=== PATIENT | female | born 1965 | race Caucasian/White ===

== ENCOUNTER → 2022-12-10 | Outpatient (CLI) | payer MEDICAID, SELFPAY ==
[2022-12-10 10:49] LABS: Absolute Lymphocyte Count 1.89 X10^3/uL (0.83-4.51); Absolute Neutrophil Count 2.9 X10^3/uL (2.0-7.7); Basophil# 0.07 X10^3/uL; Basophil% 1.3 % (0-1); Eosinophil# 0.23 X10^3/uL; Eosinophils% 4.3 % (0-5); Hemoglobin 14.9 g/dL (12.0-15.0); Lymphocyte # 1.89 X10^3/ul (0.83-4.51); Mean Corp Hgb Conc 33.9 g/dL (32-36); Mean Corpuscular Volume 94.6 fL (81-99); Monocyte# 0.35 X10^3/uL; Monocyte% 6.5 % (0-10); NRBC Flagged by Analyzer 0 % (0-5); Neutrophil # 2.85 X10^3/uL (2.7-7.7); Neutrophil % 52.7 % (47-70); Platelet Count 325 K/mm3 (150-450); RBC Distribution Width CV 13.6 % (11.6-14.6); RBC Distribution Width SD 47.6 fl (35.1-43.9); Red Blood Count 4.65 M/mm3 (4.2-5.4); White Blood Count 5.4 K/mm3 (4.4-11.0)
[2022-12-10 11:05] LABS: Vitamin B12 441 pg/mL (211-911); Vitamin D,25 Hydroxy 48.6 ng/mL
[2022-12-10 11:44] LABS: Progesterone Level < 0.21 ng/mL (See Comment)
[2022-12-10 11:50] LABS: ALB/GLOB Ratio 1.5 RATIO (0.9-2.4); AST(SGOT) 20 U/L (15-37); Alanine Aminotransfer ALT/SGPT 30 U/L (13-56); Albumin, Serum 4.3 g/dL (3.2-5.0); Alkaline Phosphatase 61 U/L (45-117); Anion Gap 8 (5-15); BUN 15 mg/dL (7-18); BUN/Creat Ratio 17.7 RATIO (10-20); Calcium,Total 10.4 mg/dL (8.5-10.1); Chloride 105 mmol/L (98-107); Creatinine, Serum 0.85 mg/dL (0.55-1.02); EST Glomerular Filtration Rate 74 mL/min (>60); Est Glom Filt Rate - Afr Amer 89 mL/min (>60); Estradiol 19.7 pg/mL; Ferritin 77 ng/mL (8-252); Globulin 2.8 g/dL (2.2-4.2); Glucose 89 mg/dL (74-106); Iron 78 ug/dL (50-170); Potassium 3.3 mmol/L (3.5-5.1); Protein, Total 7.1 g/dL (6.4-8.2); Sodium Level 140 mmol/L (136-145)
[2022-12-11 14:10] LABS: DHEA Sulfate 92.5 ug/dL (29.4-220.5)
[2022-12-11 18:51] LABS: Lyme Scn Total Ab w/Rflx Negative (Negative)
[2022-12-11 18:54] LABS: CMV Antibody IgG < 0.60 U/mL (0.00-0.59); EBV Acute VCA IgM < 36.0 U/mL (0.0-35.9)
== END | disposition home or self-care (01) ==
PROVIDERS: Referring Provider Nurse Practitioner Family; Visit Provider Nurse Practitioner Family
DX: G89.4 Chronic pain syndrome (principal); R53.82 Chronic fatigue, unspecified; H93.233 Hyperacusis, bilateral; H93.13 Tinnitus, bilateral; M54.50 Low back pain, unspecified; F41.9 Anxiety disorder, unspecified; G47.00 Insomnia, unspecified; K58.9 Irritable bowel syndrome, unspecified; F32.A Depression, unspecified; R06.02 Shortness of breath
CPT/HCPCS: 80053; 82306; 82607; 82627; 82670; 82728; 83540; 84144; 84403; 85025; 86618; 86644; 86664; 86665; 82626

== ENCOUNTER → 2023-01-27 | Outpatient (CLI) | payer MEDICAID, SELFPAY ==
[2023-01-27 16:54] LABS: Absolute Lymphocyte Count 2.08 X10^3/uL (0.83-4.51); Absolute Neutrophil Count 2.3 X10^3/uL (2.0-7.7); Basophil# 0.05 X10^3/uL; Eosinophil# 0.19 X10^3/uL; Eosinophils% 3.9 % (0-5); Hematocrit 43.6 % (37-47); Lymphocyte # 2.08 X10^3/ul (0.83-4.51); Lymphocyte % 43.1 % (19-41); Mean Corp Hgb Conc 34.4 g/dL (32-36); Mean Corpuscular Hgb 31.9 pg (27.0-32.0); Mean Corpuscular Volume 92.8 fL (81-99); Mean Platelet Vol. 9.8 fl (6.2-12.0); Monocyte# 0.26 X10^3/uL; Monocyte% 5.4 % (0-10); NRBC Flagged by Analyzer 0 % (0-5); Neutrophil # 2.25 X10^3/uL (2.7-7.7); Neutrophil % 46.6 % (47-70); Platelet Count 328 K/mm3 (150-450); RBC Distribution Width CV 13.1 % (11.6-14.6); RBC Distribution Width SD 44.7 fl (35.1-43.9); White Blood Count 4.8 K/mm3 (4.4-11.0)
[2023-01-27 17:20] LABS: ALB/GLOB Ratio 1.4 RATIO (0.9-2.4); AST(SGOT) 18 U/L (15-37); Alanine Aminotransfer ALT/SGPT 38 U/L (13-56); Albumin, Serum 4.2 g/dL (3.2-5.0); Alkaline Phosphatase 53 U/L (45-117); Anion Gap 3 (5-15); BUN 11 mg/dL (7-18); BUN/Creat Ratio 14.1 RATIO (10-20); CPK Total, Creatine Kinase 91 U/L (26-192); Calcium,Total 9.6 mg/dL (8.5-10.1); Chloride 109 mmol/L (98-107); Creatinine, Serum 0.78 mg/dL (0.55-1.02); EST Glomerular Filtration Rate 81 mL/min (>60); Est Glom Filt Rate - Afr Amer 98 mL/min (>60); Free T3 2.3 pg/mL (2.18-3.98); Globulin 3.1 g/dL (2.2-4.2); Glucose 91 mg/dL (74-106); Magnesium 2.1 mg/dL (1.6-2.6); Potassium 3.5 mmol/L (3.5-5.1); Protein, Total 7.3 g/dL (6.4-8.2); Sodium Level 137 mmol/L (136-145); T4 Free Direct 1.35 ng/dL (0.76-1.46); Troponin-I HS < 3 pg/mL (3.0-54.0)
== END | disposition home or self-care (01) ==
PROVIDERS: Referring Provider Nurse Practitioner Family; Visit Provider Nurse Practitioner Family
DX: G89.4 Chronic pain syndrome (principal); R53.82 Chronic fatigue, unspecified; H93.233 Hyperacusis, bilateral; H93.13 Tinnitus, bilateral; M54.50 Low back pain, unspecified; M79.673 Pain in unspecified foot; F41.9 Anxiety disorder, unspecified; G47.00 Insomnia, unspecified; K58.9 Irritable bowel syndrome, unspecified; A44.9 Bartonellosis, unspecified; E83.52 Hypercalcemia; R60.0 Localized edema; E03.9 Hypothyroidism, unspecified; E87.6 Hypokalemia; R07.89 Other chest pain
CPT/HCPCS: 36415; 80053; 82550; 83735; 84425; 84439; 84443; 84481; 84484; 84630; 85025; 86658

== ENCOUNTER → 2023-09-10 | Outpatient (CLI) | payer MEDICAID, SELFPAY ==
[2023-09-10 12:50] LABS: Absolute Lymphocyte Count 1.63 X10^3/uL (0.83-4.51); Absolute Neutrophil Count 2.9 X10^3/uL (2.0-7.7); Basophil# 0.05 X10^3/uL; Eosinophil# 0.33 X10^3/uL; Eosinophils% 6.3 % (0-5); Hematocrit 41.8 % (37-47); Hemoglobin 14.8 g/dL (12.0-15.0); Lymphocyte # 1.63 X10^3/ul (0.83-4.51); Lymphocyte % 31.2 % (19-41); Mean Corp Hgb Conc 35.4 g/dL (32-36); Mean Corpuscular Volume 93.1 fL (81-99); Mean Platelet Vol. 9.9 fl (6.2-12.0); Monocyte% 5.7 % (0-10); NRBC Flagged by Analyzer 0 % (0-5); Neutrophil # 2.91 X10^3/uL (2.7-7.7); Neutrophil % 55.6 % (47-70); Platelet Count 297 K/mm3 (150-450); RBC Distribution Width CV 13.1 % (11.6-14.6); RBC Distribution Width SD 44.9 fl (35.1-43.9); Red Blood Count 4.49 M/mm3 (4.2-5.4); White Blood Count 5.2 K/mm3 (4.4-11.0)
[2023-09-10 13:12] LABS: ALB/GLOB Ratio 1.4 RATIO (0.9-2.4); AST(SGOT) 29 U/L (15-37); Alanine Aminotransfer ALT/SGPT 56 U/L (13-56); Albumin, Serum 3.7 g/dL (3.2-5.0); Alkaline Phosphatase 61 U/L (45-117); Anion Gap 6 (5-15); BUN 13 mg/dL (7-18); BUN/Creat Ratio 17.4 RATIO (10-20); Calcium,Total 8.7 mg/dL (8.5-10.1); Chloride 107 mmol/L (98-107); Creatinine, Serum 0.75 mg/dL (0.55-1.02); EST Glomerular Filtration Rate 85 mL/min (>60); Est Glom Filt Rate - Afr Amer 102 mL/min (>60); Free T3 2.3 pg/mL (2.18-3.98); Globulin 2.7 g/dL (2.2-4.2); Glucose 87 mg/dL (74-106); Protein, Total 6.4 g/dL (6.4-8.2); Sodium Level 140 mmol/L (136-145); T4 Free Direct 0.96 ng/dL (0.76-1.46); Thyroid Stim Hormone (TSH) 5.82 uIU/mL (0.358-3.74)
[2023-09-11 14:08] LABS: Thyroglobulin Antibody < 1.0 IU/mL (0.0-0.9); Thyroid Peroxidase AB < 9 IU/mL (0-34)
== END | disposition home or self-care (01) ==
LOC: LABSPEC 12:11
PROVIDERS: Referring Provider Nurse Practitioner Family; Visit Provider Nurse Practitioner Family
DX: E03.9 Hypothyroidism, unspecified (principal); R53.82 Chronic fatigue, unspecified
CPT/HCPCS: 80053; 84439; 84443; 84481; 85025; 86376; 86800

== ENCOUNTER → 2023-09-14 | Outpatient (CLI) | payer MEDICAID, SELFPAY | END | disposition home or self-care (01) | PROVIDERS: PCP Nurse Practitioner Family; Referring Provider Nurse Practitioner Family; Visit Provider Nurse Practitioner Family | DX: G31.84 Mild cognitive impairment of uncertain or unknown etiology (principal) | CPT/HCPCS: 36415 ==

== ENCOUNTER → 2024-04-01 | Outpatient (CLI) | payer MEDICAID, SELFPAY | END | disposition home or self-care (01) | LOC: LABSPEC 12:03 | PROVIDERS: PCP Nurse Practitioner Family; Referring Provider Nurse Practitioner Family; Visit Provider Nurse Practitioner Family | DX: J44.0 Chronic obstructive pulmonary disease with (acute) lower respiratory infection (principal) | CPT/HCPCS: 87070; 87205 ==

== ENCOUNTER → 2024-05-06 | Outpatient (CLI) | payer MEDICAID, SELFPAY ==
[2024-05-06 18:20] LABS: Absolute Lymphocyte Count 1.71 X10^3/uL (0.83-4.51); Basophil# 0.05 X10^3/uL; Basophil% 0.9 % (0-1); Eosinophil# 0.26 X10^3/uL; Eosinophils% 4.8 % (0-5); Hematocrit 42.6 % (37-47); Hemoglobin 14.6 g/dL (12.0-15.0); Lymphocyte # 1.71 X10^3/ul (0.83-4.51); Lymphocyte % 31.6 % (19-41); Mean Corp Hgb Conc 34.3 g/dL (32-36); Mean Corpuscular Volume 96.2 fL (81-99); Mean Platelet Vol. 10.6 fl (6.2-12.0); Monocyte# 0.38 X10^3/uL; NRBC Flagged by Analyzer 0 % (0-5); Neutrophil # 2.99 X10^3/uL (2.7-7.7); Neutrophil % 55.3 % (47-70); Platelet Count 305 K/mm3 (150-450); RBC Distribution Width CV 14.2 % (11.6-14.6); Red Blood Count 4.43 M/mm3 (4.2-5.4); White Blood Count 5.4 K/mm3 (4.4-11.0)
[2024-05-06 18:30] LABS: Vitamin B12 505 pg/mL (211-911); Vitamin D,25 Hydroxy 38.7 ng/mL
[2024-05-06 18:40] LABS: ALB/GLOB Ratio 1.3 RATIO (0.9-2.4); AST(SGOT) 27 U/L (15-37); Alanine Aminotransfer ALT/SGPT 48 U/L (13-56); Albumin, Serum 3.9 g/dL (3.2-5.0); Alkaline Phosphatase 77 U/L (45-117); Anion Gap 6 (5-15); BUN 14 mg/dL (7-18); BUN/Creat Ratio 16.3 RATIO (10-20); Calcium,Total 9.3 mg/dL (8.5-10.1); Chloride 108 mmol/L (98-107); Creatinine, Serum 0.86 mg/dL (0.55-1.02); EST Glomerular Filtration Rate 72 mL/min (>60); Est Glom Filt Rate - Afr Amer 87 mL/min (>60); Free T3 2.8 pg/mL (2.18-3.98); Globulin 2.9 g/dL (2.2-4.2); Glucose 102 mg/dL (74-106); Potassium 4.3 mmol/L (3.5-5.1); Protein, Total 6.8 g/dL (6.4-8.2); Sodium Level 141 mmol/L (136-145); T4 Free Direct 1.07 ng/dL (0.76-1.46); Thyroid Stim Hormone (TSH) 2.15 uIU/mL (0.358-3.74)
== END | disposition home or self-care (01) ==
PROVIDERS: PCP Nurse Practitioner Family; Referring Provider Nurse Practitioner Family; Visit Provider Nurse Practitioner Family
DX: R53.82 Chronic fatigue, unspecified (principal); E03.9 Hypothyroidism, unspecified; R06.00 Dyspnea, unspecified; G89.29 Other chronic pain
CPT/HCPCS: 80053; 82306; 82607; 82746; 84439; 84443; 84481; 85025

== ENCOUNTER → 2024-10-21 | Outpatient (CLI) | payer MEDICAID, SELFPAY ==
[2024-10-21 17:35] LABS: Absolute Lymphocyte Count 1.85 X10^3/uL (0.83-4.51); Absolute Neutrophil Count 2.9 X10^3/uL (2.0-7.7); Basophil# 0.05 X10^3/uL; Basophil% 0.9 % (0-1); Eosinophil# 0.22 X10^3/uL; Eosinophils% 4.1 % (0-5); Hematocrit 44.5 % (37-47); Hemoglobin 15.1 g/dL (12.0-15.0); Lymphocyte # 1.85 X10^3/ul (0.83-4.51); Lymphocyte % 34.2 % (19-41); Mean Corp Hgb Conc 33.9 g/dL (32-36); Mean Corpuscular Hgb 32.3 pg (27.0-32.0); Mean Corpuscular Volume 95.1 fL (81-99); Mean Platelet Vol. 9.8 fl (6.2-12.0); Monocyte# 0.34 X10^3/uL; Monocyte% 6.3 % (0-10); NRBC Flagged by Analyzer 0 % (0-5); Neutrophil # 2.93 X10^3/uL (2.7-7.7); Neutrophil % 54.1 % (47-70); Platelet Count 344 K/mm3 (150-450); RBC Distribution Width SD 45.5 fl (35.1-43.9); Red Blood Count 4.68 M/mm3 (4.2-5.4); White Blood Count 5.4 K/mm3 (4.4-11.0)
[2024-10-21 17:51] LABS: Vitamin B12 660 pg/mL (211-911); Vitamin D,25 Hydroxy 67.6 ng/mL
[2024-10-21 18:31] LABS: ALB/GLOB Ratio 1.6 RATIO (0.9-2.4); AST(SGOT) 18 U/L (15-37); Alanine Aminotransfer ALT/SGPT 41 U/L (13-56); Albumin, Serum 4.2 g/dL (3.2-5.0); Alkaline Phosphatase 60 U/L (45-117); Anion Gap 3 (5-15); BUN 12 mg/dL (7-18); BUN/Creat Ratio 12.7 RATIO (10-20); Calcium,Total 10.1 mg/dL (8.5-10.1); Chloride 109 mmol/L (98-107); Creatinine, Serum 0.94 mg/dL (0.55-1.02); EST Glomerular Filtration Rate 65 mL/min (>60); Est Glom Filt Rate - Afr Amer 78 mL/min (>60); Estradiol 14.1 pg/mL; Globulin 2.7 g/dL (2.2-4.2); Glucose 97 mg/dL (74-106); Protein, Total 6.9 g/dL (6.4-8.2); Sodium Level 140 mmol/L (136-145)
[2024-10-23 06:37] LABS: DHEA Sulfate 82.3 ug/dL (29.4-220.5); PROGESTERONE <0.1 ng/mL (.)
== END | disposition home or self-care (01) ==
LOC: LABSPEC 17:15
PROVIDERS: PCP Nurse Practitioner Family; Visit Provider Nurse Practitioner Family
DX: E28.9 Ovarian dysfunction, unspecified (principal); N95.9 Unspecified menopausal and perimenopausal disorder; F41.9 Anxiety disorder, unspecified; G47.00 Insomnia, unspecified; R53.82 Chronic fatigue, unspecified; G89.4 Chronic pain syndrome
CPT/HCPCS: 80053; 82306; 82607; 82627; 82670; 82746; 84144; 84403; 85025; 82626

== ENCOUNTER → 2025-02-09 19:00 | Outpatient (REF) | payer MEDICAID, SELFPAY ==
[2025-02-10 14:22] LABS: Absolute Lymphocyte Count 2.53 X10^3/uL (0.83-4.51); Absolute Neutrophil Count 3.1 X10^3/uL (2.0-7.7); Basophil# 0.07 X10^3/uL; Basophil% 1.1 % (0-1); Eosinophil# 0.41 X10^3/uL; Eosinophils% 6.2 % (0-5); Hematocrit 45.6 % (37-47); Hemoglobin 15.7 g/dL (12.0-15.0); Lymphocyte # 2.53 X10^3/ul (0.83-4.51); Lymphocyte % 38.2 % (19-41); Mean Corp Hgb Conc 34.4 g/dL (32-36); Mean Corpuscular Hgb 32.4 pg (27.0-32.0); Mean Platelet Vol. 10.4 fl (6.2-12.0); Monocyte# 0.46 X10^3/uL; Monocyte% 6.9 % (0-10); NRBC Flagged by Analyzer 0 % (0-5); Neutrophil # 3.14 X10^3/uL (2.7-7.7); Neutrophil % 47.3 % (47-70); Platelet Count 314 K/mm3 (150-450); RBC Distribution Width CV 13.3 % (11.6-14.6); RBC Distribution Width SD 45.6 fl (35.1-43.9); Red Blood Count 4.85 M/mm3 (4.2-5.4); White Blood Count 6.6 K/mm3 (4.4-11.0)
[2025-02-10 15:11] LABS: ALB/GLOB Ratio 2.5 RATIO (0.9-2.4); AST(SGOT) 20 U/L (<=31); Alanine Aminotransfer ALT/SGPT 27 U/L (<=34); Albumin, Serum 4.6 g/dL (3.5-5.0); Alkaline Phosphatase 57 U/L (35-104); Anion Gap 12 (5-15); BUN 13 mg/dL (4-19); Calcium,Total 10.2 mg/dL (7.6-11.0); Carbon Dioxide 24.5 mmol/L (21.0-32.0); Chloride 104 mmol/L (98-108); EST Glomerular Filtration Rate 74 (>60); Estradiol 79.1 pg/mL; Globulin 1.9 g/dL (2.2-4.2); Glucose 89 mg/dL (70-99); Potassium 3.8 mmol/L (3.3-5.1); Protein, Total 6.4 g/dL (5.9-8.4); Sodium Level 141 mmol/L (133-145); Testosterone, Total 2.58 ng/dL (9-55); Thyroid Stim Hormone (TSH) 0.996 uIU/mL (0.300-4.200); Total Bilirubin 0.27 mg/dL (0.00-1.30)
[2025-02-12 07:08] LABS: DHEA Sulfate 72.7 ug/dL (29.4-220.5); PROGESTERONE 2.4 ng/mL (.)
== END ==
LOC: LABSPEC 19:00
PROVIDERS: PCP Nurse Practitioner Family; Referring Provider Nurse Practitioner Family; Visit Provider Nurse Practitioner Family
DX: J44.9 Chronic obstructive pulmonary disease, unspecified (principal); F41.9 Anxiety disorder, unspecified; R53.82 Chronic fatigue, unspecified; G89.4 Chronic pain syndrome; N94.10 Unspecified dyspareunia; E28.9 Ovarian dysfunction, unspecified; N95.9 Unspecified menopausal and perimenopausal disorder; E03.9 Hypothyroidism, unspecified
CPT/HCPCS: 80053; 82627; 82670; 84144; 84403; 84439; 84443; 85025; 82626

== ENCOUNTER → 2025-06-16 | Outpatient (CLI) | payer MEDICAID, SELFPAY ==
[2025-06-24 12:09] LABS: Vitamin B1, Thiamine 175.7 nmol/L (66.5-200.0)
== END | disposition home or self-care (01) ==
LOC: LABSPEC 17:02
PROVIDERS: PCP Nurse Practitioner Family; Visit Provider Nurse Practitioner Family
DX: G89.4 Chronic pain syndrome (principal); R53.82 Chronic fatigue, unspecified
CPT/HCPCS: 84425

== ENCOUNTER → 2025-08-10 | Outpatient (CLI) | payer MEDICAID, SELFPAY | END | disposition home or self-care (01) | LOC: LABSPEC 22:20 | PROVIDERS: PCP Nurse Practitioner Family; Visit Provider Nurse Practitioner Family | DX: J01.91 Acute recurrent sinusitis, unspecified (principal); J44.9 Chronic obstructive pulmonary disease, unspecified | CPT/HCPCS: 87070; 87205 ==